=== PATIENT | female | born 1980 | race Caucasian/White ===

== ENCOUNTER 2023-12-05 09:20 | Outpatient (REF) | payer OTHER, SELFPAY ==
--- NOTE | ~2023-12-05 | XR_ITS ---
EXAMINATION: XR FOOT, RIGHT CLINICAL INFORMATION: Red toes, bunion deformity COMPARISON: None available TECHNIQUE: AP, lateral, and oblique views of the right foot. FINDINGS: Hallux valgus deformity with bony and soft tissue proliferation first metatarsal head. No fracture or dislocation. Plantar calcaneal spurring. XR/XR foot RT min 3V IMPRESSION: Bunion. Calcaneal spurring.
== END 2023-12-05 09:21 | disposition home or self-care (01) ==
LOC: HO.HMGCX 09:20
PROVIDERS: PCP Internal Medicine; Visit Provider Internal Medicine
DX: M21.611 Bunion of right foot (principal)
CPT/HCPCS: 73630

== ENCOUNTER 2023-12-30 11:58 | Outpatient (REF) | payer OTHER, SELFPAY ==
--- NOTE | ~2023-12-30 | XR_ITS ---
EXAMINATION: XR LUMBOSACRAL SPINE CLINICAL INFORMATION: Low back pain. COMPARISON: 07/07/2014 TECHNIQUE: 3 views of the lumbosacral spine. 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 Small rounded pelvic calcifications are likely vascular. Facet arthritis lower lumbar spine. Mild multilevel lumbar spondylosis with mild loss of disc space height at L5-S1. XR/XR lumbar spine 2-3V IMPRESSION: 1. 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 2. Mild multilevel lumbar spondylosis with mild loss of disc space height at L5-S1.
== END 2023-12-30 11:59 | disposition home or self-care (01) ==
LOC: HO.HMGCX 11:58
PROVIDERS: PCP Internal Medicine; Visit Provider Internal Medicine
DX: M54.50 Low back pain, unspecified (principal)
CPT/HCPCS: 72100

== ENCOUNTER 2024-03-05 09:35 | Outpatient (REF) | payer OTHER, SELFPAY ==
[2024-03-05 11:06] LABS: Alanine Aminotransferase 11 U/L (0-31); Albumin Level 4.1 g/dL (3.5-5.0); Alkaline Phosphatase 73 U/L (39-117); Aspartate Amino Transferase 13 U/L (5-31); Bilirubin Direct 0.1 mg/dL (0.0-0.5); Bilirubin Total 0.3 mg/dL (0.0-1.0); Cholesterol 212 mg/dL (<200); HDL Cholesterol 40 mg/dL (>40); LDL Cholesterol Calculated 155 mg/dL (<100); Total Protein 7.3 g/dL (6.5-8.0); Triglycerides 86 mg/dL (<150)
== END 2024-03-05 09:36 | disposition home or self-care (01) ==
LOC: HO.HMGCLDS 09:35
PROVIDERS: PCP Internal Medicine; Visit Provider Internal Medicine
DX: E78.5 Hyperlipidemia, unspecified (principal)
CPT/HCPCS: 36415; 80061; 80076